=== PATIENT | female | born 1935 | race Caucasian/White ===

== ENCOUNTER 2020-07-01 13:24 | Emergency (ER) | payer MEDICARE, OTHER, SELFPAY ==
[2020-07-01 13:30] VITALS: BP 130/72; PULSE 75; RESP 20; TEMP 36.7; O2SAT 96; BMI 20.9
--- NOTE | 2020-07-01 13:59 | HMH.EDUTC ---
[facility] [place] Clinical Impression: UTI (urinary tract infection) Qualifiers: Urinary tract infection type: site unspecified Hematuria presence: without hematuria Qualified Code(s): N39.0 - Urinary tract infection, site not specified Disposition: Home, Self-Care Condition on Discharge: Good Instructions: Urinary Tract Infection, DI for Urinary Tract Infection (UTI), Nitrofurantoin Additional Instructions: *Increase fluids. Water not Soda or Tea *Start antibiotic immediately and be sure to take as ordered for the FULL length of time although you should start to see improvement over the next 48 hours *Be SURE to follow up anytime for new or worsening symptoms with your family doctor. AND in 48 hours for urine culture results with your family doctor, if you do not have a doctor then you may call back to the [facility] for urine culture results and further treatment. We do recommend that you choose and establish care with a Primary Care Physician. AND follow up with them in 10-14 days to repeat UA to ensure infection is resolved and blood no longer present *Be sure to let your PCP know that we sent urine cultures from the [facility] so they can follow up to ensure that you area the on the correct antibiotic Call your doctor office and make appointment for 48 hours (2 days from today) to follow up and get the results of your urine culture and further treatment Make sure to follow up on Friday as advised Return if needed Straight to ER if any worsening of symptoms or any life threatening symptoms You were tested for today for COVID19 your test result should be back in the next 24-48 hours, you may call to the [facility] to see if your test results are back in the next 48 hours [phone] [facility] hours are 9am-9pm You was given a handout with instructions for Self Quarantine and Self isolation for while you wait on test results and what to do if they are positive If you are positive the Health Dept will be contacting you also Prescriptions: Nitrofurantoin Monohyd/M-Cryst [Macrobid 100 mg Capsule] 100 mg PO BID 5 Days #10 cap Transmission Status: Pending to [employer] #[id number] Referrals: Darryl Nichols [Primary Care Provider] - As needed Time of Disposition: 14:15 Medical Decision Making - Enzo Inquiry Pt receiving controlled substance: No Enzo was queried for this patient: No Vital Signs: 07/01/20 13:30 Temperature 98.1 F Temperature Source Oral Pulse Rate [Right Brachial] 75 Respiratory Rate 20 Blood Pressure [Right Arm] 130/72 Blood Pressure Mean [Right Arm] 91 Blood Pressure Source [Right Arm] Automatic Cuff Blood Pressure Position [Right Arm] Sitting 02 Sat by Pulse Oximetry 96 Oxygen Delivery Method Room Air - Lab Data Lab results reviewed: Yes: I reviewed the patient's lab results. Lab Results 07/01/20 13:49: Urine Color Dark yellow, Urine Appearance Clear, Urine pH 5.5, Ur Specific [place] 1.020, Urine Protein 1+, Urine Glucose (UA) Negative, Urine Ketones Negative, Urine Blood Negative, Urine Nitrate Negative, Urine Bilirubin 1+ A, Urine Urobilinogen 0.2, Ur Leukocyte Esterase 1+ A 07/01/20 14:10: Influenza Type A Ag Negative, Influenza Type B Ag Negative Orders (Tests/Meds): ORDERS Category Date Time Status Covid-19 Nasal PCR ([facility]) Routine Lab 07/01/20 13:50 Ordered Urine Culture Stat Micro 07/01/20 14:04 Ordered Medical Decision Narrative: Discussed with patient and family and patient states that she is not having any abdominal pain at this time Discussed that patient could be transferred to the Ed for further work up and evaluation and patient declined States that she is feeling better today Discussed with patient that we will do UA, COVID and flu Urine results discussed with patient and again recommended that she could be transferred to ED for further work up and evaluation and patient declined states that she would start medication for UTI as this is similar to symptoms she had before with UTI and if no im
[2020-07-01 14:04] LABS: Color,Urine Dark Yellow (Yellow)
[2020-07-01 14:05] LABS: Apearance,Urine Clear (Clear); Bilirubin,Urine 1+ (Negative); Blood, Urine Negative (Negative); Glucose,Urine (UA) Negative (Negative); Ketones,Urine Negative (Negative); PH,Urine 5.5 (5.0-8.5); Protein,Urine 1+ (Negative); UTC Leukocyte Esterase,Urine 1+ (Negative); UTC Nitrate,Urine Negative (Negative); Urobilinogen,Urine 0.2 EU/dl (0.2)
[2020-07-01 14:10] LABS: UTC Influenza A Antigen Negative (Negative); UTC Influenza B Antigen Negative (Negative)
[2020-07-01 14:17] VITALS: BP 130/72; PULSE 75; RESP 20; TEMP 36.7; O2SAT 96
== END 2020-07-01 14:28 | disposition home or self-care (01) ==
PROVIDERS: Emergency Provider Nurse Practitioner; PCP Family Medicine
DX: N30.00 Acute cystitis without hematuria (principal); Z20.822 Contact with and (suspected) exposure to COVID-19; I10 Essential (primary) hypertension; E03.9 Hypothyroidism, unspecified; G43.709 Chronic migraine without aura, not intractable, without status migrainosus; Z79.899 Other long term (current) drug therapy
CPT/HCPCS: G0463; 81003; 87086; 87804; 99202; U0003

== ENCOUNTER 2020-07-13 19:33 | Emergency (ER) | payer MEDICARE, OTHER, SELFPAY ==
[2020-07-13 19:35] VITALS: BP 164/79; PULSE 71; RESP 16; TEMP 36.8; O2SAT 97; BMI 20.1
[2020-07-13 20:00] VITALS: BP 140/78; PULSE 63; RESP 16; O2SAT 97
[2020-07-13 20:03] LABS: Microscopic, Urine URINE MICROSCOPIC (MICROSCOPIC)
[2020-07-13 20:06] LABS: Appearance,Urine CLEAR (Clear); Blood, Urine Negative (Negative); Color,Urine YELLOW (Yellow); Glucose,Urine (UA) Negative (Negative); Ketones,Urine TRACE (Negative); Leukocyte Esterase,Urine TRACE (Negative); Nitrate,Urine Negative (Negative); Protein,Urine Negative (Negative)
--- NOTE | 2020-07-13 20:13 | CT_ITS ---
PROCEDURE: CT ABDOMEN PELVIS W CON CLINICAL INDICATION: abdominal pain Bilateral lower flank pain COMPARISON: No exams were available for comparison TECHNIQUE: IV Contrast: 75ML Isovue 370 Oral Contrast None Axial images obtained with sagittal and coronal reformats. All CT scans at the facility use one or more dose reduction, viz: automated exposure control, ma/kV adjustment per patient size (including targeted exams where dose is matched to indication, i.e. head), or iterative reconstruction technique. FINDINGS: LOWER THORAX: Loculated effusion noted in the right posterior costophrenic sulcus. This is somewhat hyperdense measuring 47 Hounsfield units. Cannot exclude the possibility a mass or consolidation of the lung. ABDOMEN & PELVIS: The liver, spleen, adrenal glands, pancreas, gallbladder, have an unremarkable appearance. No renal or ureteral calculi. There is a 2 cm left renal cyst. There is mild cortical scarring of both kidneys right greater than left. No renal or ureteral calculi. No hydronephrosis. No intestinal obstruction or free air. No evidence of appendicitis or diverticulitis. No pelvic mass or abnormal fluid collection. The urinary bladder has an unremarkable appearance. Thoracolumbar scoliosis convex right. Degenerative changes are present of the lumbar spine. There is a pessary device present IMPRESSION: 1. Loculated complex effusion in the right posterior costophrenic sulcus.. Consider follow-up to confirm stability. 2. Otherwise negative with nonacute abdominal and pelvic findings as described above. Dictated by: Shayne Wagoner MD 07/14/2020 05:56 Shayne Wagoner MD in [place] 07/14/2020 05:56
[2020-07-13 20:20] LABS: Amorphous Sediment,Urine 1+ /lpf; Bacteria,Urine 1+ /lpf; Bilirubin,Urine Negative (Negative); Mucus,Urine 1+ /lpf
[2020-07-13 20:21] LABS: Basophils % 0.2 % (0.1-2.0); Eosinophils # 0.1 K/mm3 (0.0-0.4); Eosinophils % 0.8 % (0.1-12.0); Hematocrit 35.7 % (37.0-47.0); Hemoglobin 11.8 g/dL (12.2-16.2); Lymphocytes # 1.1 K/mm3 (0.7-4.5); Lymphocytes % 10.7 % (10-50); Mean Corpuscular HGB Conc 32.9 g/dL (31.8-35.4); Mean Corpuscular Hemoglobin 31.1 pg (27.0-31.2); Mean Corpuscular Volume 94.5 fl (81-99); Monocytes # 0.4 K/mm3 (0.1-1.0); Monocytes % 4.4 % (1.7-9.3); Neutrophils # 8.1 K/mm3 (1.8-7.8); Neutrophils % 83.8 % (37.0-80.0); Platelet Count 287 K/mm3 (142-424); Red Blood Count 3.78 M/mm3 (4.20-5.40); Red Cell Distribution Width 12.5 % (11.5-17.5); White Blood Count 9.7 K/mm3 (4.8-10.8)
--- NOTE | 2020-07-13 20:22 | HMH.EDGENADL ---
ED Disposition Clinical Impression: Acute pyelonephritis Disposition: Home, Self-Care Condition on Discharge: Good Additional Instructions: Return for worsening back pain abdominal pain vomiting or any other concerns within 8 hours otherwise follow-up with your primary care physician within the next few days Prescriptions: Cefdinir [Omnicef 300mg Capsule] 300 mg PO BID #20 cap Transmission Status: Pending to [employer] #[id number] Referrals: Darryl Nichols [Primary Care Provider] - - Critical Care Critical Care Time: No Attestation: On 07/13/20, the high probability of a clinically significant, sudden or life threatening deterioration of the following system(s) required my full and direct attention, intervention and personal management. The time I documented below is in addition to time spent performing reported procedures but includes the following listed in this critical care notation. Medical Decision Making - Medical Records Medical records reviewed: Yes: I reviewed the patient's medical records. - Enzo Inquiry Pt receiving controlled substance: No Vital Signs: 07/13/20 19:35 07/13/20 20:00 Temperature 98.2 F Temperature Source Oral Pulse Rate [Left Radial] 71 63 Respiratory Rate 16 16 Blood Pressure [Right Arm] 164/79 H 140/78 Blood Pressure Mean [Right Arm] 107 98 Blood Pressure Source [Right Arm] Automatic Cuff Automatic Cuff Blood Pressure Position [Right Arm] Sitting Supine 02 Sat by Pulse Oximetry 97 97 Oxygen Delivery Method Room Air Room Air - Lab Data Lab Results 07/13/20 19:48: Urine Color Yellow, Urine Appearance Clear, Urine pH 6.0, Ur Specific [place] 1.020, Urine Protein Negative, Urine Glucose (UA) Negative, Urine Ketones Trace, Urine Blood Negative, Urine Nitrate Negative, Urine Bilirubin Negative, Urine Urobilinogen 2.0, Ur Leukocyte Esterase Trace, Urine WBC 3-5, Ur Squamous Epith Cells 5-10, Amorphous Sediment 1+, Urine Bacteria 1+, Urine Mucus 1+ 07/13/20 20:11: WBC 9.7, RBC 3.78 L, Hgb 11.8 L, Hct 35.7 L, MCV 94.5, MCH 31.1, MCHC 32.9, RDW 12.5, Plt Count 287, MPV 9.0, Neut % (Auto) 83.8 H, Lymph % (Auto) 10.7, [place] % (Auto) 4.4, Eos % (Auto) 0.8, Baso % (Auto) 0.2, Neut # (Auto) 8.1 H, Lymph # (Auto) 1.1, [place] # (Auto) 0.4, Eos # (Auto) 0.1, Baso # (Auto) 0.0 07/13/20 20:11: Sodium 132 L, Potassium 3.7, Chloride 98, Carbon Dioxide 22, Anion Gap 15.7 H, BUN 19 H, Creatinine 1.30 H, Estimated Creat Clear 29, Estimated GFR 39 L, Est GFR ( Amer) 47 L, Glucose 130 H, Calcium 9.9, Total Bilirubin 0.7, AST 32, ALT 22, Alkaline Phosphatase 135 H, Total Protein 8.4 H, Albumin 4.3, Globulin 4.1 H, Albumin/Globulin Ratio 1.0 L, Lipase 330 H Result diagrams: 07/13/20 20:11 07/13/20 20:11 Orders (Tests/Meds): ED MEDICATIONS Generic Name Dose Route Start Last Admin Trade Name Freq PRN Reason Stop Dose Admin Cefdinir 300 mg 07/14/20 22:22 Cefdinir 300mg Capsule PO 07/14/20 22:23 ONCE ONE Protocol Sodium Chloride 1,000 mls @ 999 mls/hr 07/13/20 21:00 07/13/20 21:00 Sod Chlor 0.9% 1000ml Bag IV 07/13/20 22:00 999 mls/hr .Q1H1M RAMEZ Administration Discontinued Medications Generic Name Dose Route Start Last Admin Trade Name Freq PRN Reason Stop Dose Admin Acetaminophen 650 mg 07/13/20 22:17 07/13/20 22:17 Acetaminophen 325mg Tab PO 07/13/20 22:18 650 mg ONCE ONE Administration Iopamidol 75 ml 07/13/20 21:20 07/13/20 21:21 Iopamidol-370 (76%);100ml Bottle IV 07/13/20 21:21 75 ml ONCE ONE Administration Sodium Chloride 10 ml 07/13/20 21:20 07/13/20 21:21 Sodium Chloride 0.9% 10ml Syr (Rad Only) IV 07/13/20 21:21 10 ml ONCE ONE Administration ORDERS Category Date Time Status CT abdomen pelvis w con Stat Cat Scan 07/13/20 20:13 Taken Urine Culture Stat Micro 07/13/20 22:23 Ordered Medical Decision Narrative: 85-year-old female presented with lower back pain. She has had persistent pain sinc
[2020-07-13 20:26] LABS: Alanine Aminotransferase 22 U/L (12-78); Albumin Level 4.3 g/dl (3.5-5.0); Alkaline Phosphatase 135 U/L (38-126); Anion Gap 15.7 mEq/L (5-15); Aspartate Amino Transferase 32 U/L (14-36); Bilirubin,Total 0.7 mg/dl (0.2-1.3); Blood Urea Nitrogen 19 mg/dl (7-17); Calcium 9.9 mg/dl (8.4-10.2); Carbon Dioxide 22 mmol/L (22.0-30.0); Chloride 98 mmol/L (98-107); Creatinine Clearance Estimated 29 mL/min (50-200); Estimated Glomerular Filt Rate 39 ml/min (>60); GFR (African American) 47 ML/MIN (>60); Globulin 4.1 g/dL (1.3-3.2); Glucose 130 mg/dl (74-100); Lipase 330 U/L (23-300); Potassium 3.7 mmoL/L (3.5-5.1); Sodium 132 mmol/L (136-145); Total Protein,Serum 8.4 g/dl (6.3-8.2)
[2020-07-13 21:30] VITALS: BP 164/72; PULSE 69; RESP 16; O2SAT 99
[2020-07-13 22:00] VITALS: BP 153/71; PULSE 72; RESP 16; O2SAT 98
[2020-07-13 22:37] VITALS: BP 162/72; PULSE 66; RESP 16; TEMP 36.8; O2SAT 97
== END 2020-07-13 22:42 | disposition home or self-care (01) ==
PROVIDERS: Emergency Medicine; Emergency Provider Emergency Medicine; PCP Family Medicine
DX: N12 Tubulo-interstitial nephritis, not specified as acute or chronic (principal); I10 Essential (primary) hypertension; E03.9 Hypothyroidism, unspecified; Z79.899 Other long term (current) drug therapy
CPT/HCPCS: 74177; 80053; 81001; 83690; 85025; 87086; 96365; 99284; Q9967